=== PATIENT | male | born 1980 | race Caucasian/White ===

== ENCOUNTER → 2016-07-16 | Outpatient (CLI) | payer BC ==
[~2016-07-16] MED LIST: DOXY100T PO
[2016-07-16 09:02] LABS: BLOOD GAS BASE EXCESS 1.1 mmol/L (-2-2); BLOOD GAS HCO3 25 mmol/L (22-26); BLOOD GAS METHEMOGLOBIN 1.1 % (0-2); BLOOD GAS O2 HGB SATURATION 95 % (90-100); BLOOD GAS OXYGEN CONTENT 16.5 Vol % (12.0-20.0); BLOOD GAS PCO2 41 mmHg (38-42); BLOOD GAS PO2 95 mmHg (61-120); BLOOD GAS TOTAL HGB 12.2 G/DL (12.0-16.0); CRITICAL VALUE NO; DRAW SITE RT RADIAL; FIO2 21 %; NUMBER OF ARTERIAL PUNCTURES 1; STAT NO; TEMP CORR TO 98.6; ULNAR PULSE PRESENT
--- NOTE | 2016-07-19 11:48 | RSPPFT ---
DATE OF PROCEDURE: 07/16/16 COMMENTS: The forced vital capacity, FEV1, FEV1/FVC ratio and FEF 25-75 are all normal with no significant improvement after bronchodilator. The total lung capacity and residual volume are normal with a normal RV/TLC ratio. IMPRESSION: This is a normal pulmonary function study. The diffusion capacity is also normal.
== END ==
LOC: HRSP 07:46
PROVIDERS: ATTEND Family Medicine
DX: R06.02 Shortness of breath (principal)
CPT/HCPCS: 36600; 82805; 94060; 94726; 94729

== ENCOUNTER 2017-09-22 12:08 | Emergency (ER) | payer BC ==
[~2017-09-22] VITALS: Ht 180.3 cm; Wt 96.0 kg
[2017-09-22 12:14] VITALS: BP 155/84; PULSE 102; RESP 26; TEMP 97.8; O2SAT 97
[2017-09-22] MEDS ORDERED: SODIUM CHLORIDE 0.9% FLUSH 10 ML FLUSH IV FLUSH PRN (12:30)
[2017-09-22] MEDS ORDERED: SODIUM CHLOR 0.9% 1000 ML INJ 1,000 ML IV ONE (12:30)
[2017-09-22 12:44] LABS: AUTOMATED NEUTROPHIL # 5.4 TH/MM3 (1.8-7.7); BASOPHIL # 0.1 TH/MM3 (0-0.2); EOSINOPHIL # 0.3 TH/MM3 (0-0.4); EOSINOPHIL % 4.3 % (0.0-4.0); HEMATOCRIT 34.6 % (39.0-51.0); HEMOGLOBIN 10.8 GM/DL (13.0-17.0); LYMPH % 19.5 % (9.0-44.0); LYMPHOCYTE # 1.6 TH/MM3 (1.0-4.8); MEAN CORPUSCULAR HGB CONC 31.1 % (32.0-36.0); MEAN PLATELET VOLUME 8.6 FL (7.0-11.0); MONO % 8.6 % (0.0-8.0); MONOCYTE # 0.7 TH/MM3 (0-0.9); NEUT % 66.6 % (16.0-70.0); PLATELET COUNT 393 TH/MM3 (150-450); RED BLOOD COUNT 5.67 MIL/MM3 (4.50-5.90); RED CELL DISTRIBUTION WIDTH 19.8 % (11.6-17.2); WHITE BLOOD COUNT 8.1 TH/MM3 (4.0-11.0)
[2017-09-22 13:01] LABS: ALBUMIN 4.1 GM/DL (3.4-5.0); ALT (GPT) 43 U/L (12-78); AST (GOT) 27 U/L (15-37); BICARBONATE 27.6 MEQ/L (21.0-32.0); BLOOD UREA NITROGEN 16 MG/DL (7-18); CALCIUM 8.2 MG/DL (8.5-10.1); CHLORIDE 102 MEQ/L (98-107); CREATININE 1.57 MG/DL (0.60-1.30); GLOMERULAR FILTRATION RATE 50 ML/MIN (>89); GLUCOSE,RANDOM 183 MG/DL (74-106); MAGNESIUM 2.5 MG/DL (1.5-2.5); SODIUM (NA) 138 MEQ/L (136-145)
[2017-09-22 13:02] LABS: ALKALINE PHOSPHATASE 42 U/L (45-117); TOTAL BILIRUBIN ADULT 0.4 MG/DL (0.2-1.0); TOTAL PROTEIN 7.4 GM/DL (6.4-8.2)
--- NOTE | 2017-09-22 13:46 | PD ---
HPI Chief Complaint: Altered Mental Status Time Seen by Provider: 12:14 Travel History International Travel<30 days: No Contact w/Intl Traveler<30days: No Traveled to known affect area: No History of Present Illness HPI 37-year-old male that presents to the ED for evaluation of altered mental status and possible overdose. Patient is not a good historian and would not really tell me what he took but per patient he was doing "something I should not have done". Per report that was given by ambulance and patient he was in his car getting a drink and she took a "white powder "and apparently patient became unresponsive and somebody called the ambulance who evaluated him and had to break the window to get him out. Patient was given Narcan by ambulance with improvement of consciousness. Unclear as to how long the patient was out and who called the ambulance. Unclear if patient had the car on or not. He states that this was not a suicidal attempt and he does not feel homicidal suicidal. Per patient he did this recreationally. He denies this ever happened to him before. Per patient he did confess that he used heroin to nurse. Denies any chest pain or shortness of breath. No fevers chills or sweats. Patient denies injecting. Patient is noted. No other medical issues at this time. PFSH Past Medical History Hx Anticoagulant Therapy: No Cardiovascular Problems: Yes (HTN ) Diabetes: No Diminished Hearing: No Hypertension: Yes Musculoskeletal: Yes (Herniated discs in neck/back ) Immunizations Current: No Tetanus Vaccination: Unknown Influenza Vaccination: No Past Surgical History Surgical History: No Previous Surgery Social History Alcohol Use: Yes (Socc) Tobacco Use: Yes (1/2 PPD) Substance Use: Yes (COCAINE , HEROIN) Allergies-Medications (Allergen,Severity, Reaction): Coded Allergies: No Known Allergies (Unverified Adverse Reaction, Unknown, 09/22/17) Reported Meds & Prescriptions Reported Meds & Active Scripts Active Bactrim DS (Sulfamethoxazole-Trimethoprim) 800-160 Mg Tab 1 Tab PO BID 7 Days Review of Systems Except as stated in HPI: all other systems reviewed are Neg Physical Exam Narrative GENERAL: SKIN: Warm and dry. HEAD: Atraumatic. Normocephalic. EYES: Pupils equal and round. No scleral icterus. No injection or drainage. ENT: No nasal bleeding or discharge. Mucous membranes pink and moist. Tongue is midline. No uvula deviation. NECK: Trachea midline. No JVD. CARDIOVASCULAR: Regular rate and rhythm. No murmurs, S3, S4. RESPIRATORY: No accessory muscle use. Clear to auscultation. Breath sounds equal bilaterally. GASTROINTESTINAL: Abdomen soft, non-tender, nondistended. Hepatic and splenic margins not palpable. MUSCULOSKELETAL: Extremities without clubbing, cyanosis, or edema. No obvious deformities. Full range of motion of the upper and lower extremities bilaterally. 2+ pulses bilaterally. NEUROLOGICAL: Awake and alert. No obvious cranial nerve deficits. Motor grossly within normal limits. Five out of 5 muscle strength in the arms and legs. Normal speech. PSYCHIATRIC: Appropriate mood and affect; insight and judgment normal. Data Data Last Documented VS Vital Signs Date Time Temp Pulse Resp B/P (MAP) Pulse Ox O2 Delivery O2 Flow Rate FiO2 09/22/17 12:25 95 Room Air 09/22/17 12:14 97.8 102 26 155/84 (107) Orders Orders Complete Blood Count With Diff (09/22/17 12:19) Comprehensive Metabolic Panel (09/22/17 12:19) Urinalysis - C+S If Indicated (09/22/17 12:19) Magnesium (Mg) (09/22/17 12:19) Iv Access Insert/Monitor (09/22/17 12:19) Ecg Monitoring (09/22/17 12:19) Oximetry (09/22/17 12:19) Sodium Chloride 0.9% Flush (Ns Flush) (09/22/17 12:30) Alcohol (Ethanol) (09/22/17 12:19) Drug Screen, Random Urine (09/22/17 12:19) Sodium Chlor 0.9% 1000 Ml Inj (Ns 1000 M (09/22/17 12:30) Electrocardiogram (09/22/17 ) Urine Culture (09/22/17 14:15) Ed Discharge Order (09/22/17 15:13) Labs Laboratory Tests Test 09/22/17 12:30 09/22/17 14:15 White Blood Count 8.1 TH/MM3 Red Blood Count 5.67 MIL/MM3 Hemoglobin 10.8 GM/DL Hematocrit 34.6 % Mean Corpuscular Volume 61.0 FL Mean Corpuscular Hemoglobin 19.0 PG Mean Corpuscular Hemoglobin Concent 31.1 % Red Cell Distribution Width 19.8 % Platelet Count 393 TH/MM3 Mean Platelet Volume 8.6 FL Neutrophils (%) (Auto) 66.6 % Lymphocytes (%) (Auto) 19.5 % Monocytes (%) (Auto) 8.6 % Eosinophils (%) (Auto) 4.3 % Basophils (%) (Auto) 1.0 % Neutrophils # (Auto) 5.4 TH/MM3 Lymphocytes # (Auto) 1.6 TH/MM3 Monocytes # (Auto) 0.7 TH/MM3 Eosinophils # (Auto) 0.3 TH/MM3 Basophils # (Auto) 0.1 TH/MM3 CBC Comment DIFF FINAL Differential Comment Blood Urea Nitrogen 16 MG/DL Creatinine 1.57 MG/DL Random Glucose 183 MG/DL Total Protein 7.4 GM/DL Albumin 4.1 GM/DL Calcium Level 8.2 MG/DL Magnesium Level 2.5 MG/DL Alkaline Phosphatase 42 U/L Aspartate Amino Transf (AST/SGOT) 27 U/L Alanine Aminotransferase (ALT/SGPT) 43 U/L Total Bilirubin 0.4 MG/DL Sodium Level 138 MEQ/L Potassium Level 3.9 MEQ/L Chloride Level 102 MEQ/L Carbon Dioxide Level 27.6 MEQ/L Anion Gap 8 MEQ/L Estimat Glomerular Filtration Rate 50 ML/MIN Ethyl Alcohol Level LESS THAN 3 MG/DL Urine Color YELLOW Urine Turbidity HAZY Urine pH 6.5 Urine Specific Imbler 1.020 Urine Protein 100 mg/dL Urine Glucose (UA) 70 mg/dL Urine Ketones NEG mg/dL Urine Occult Blood SMALL Urine Nitrite NEG Urine Bilirubin NEG Urine Urobilinogen LESS THAN 2.0 MG/DL Urine Leukocyte Esterase NEG Urine RBC 4 /hpf Urine WBC 12 /hpf Urine Squamous Epithelial Cells 1 /hpf Urine Amorphous Sediment RARE Urine Bacteria RARE /hpf Urine Mucus FEW /lpf Microscopic Urinalysis Comment CULTURE INDICATED Urine Opiates Screen NEG Urine Barbiturates Screen NEG Urine Amphetamines Screen NEG Urine Benzodiazepines Screen NEG Urine Cocaine Screen POS Urine Cannabinoids Screen NEG MDM Medical Decision Making Medical Screen Exam Complete: Yes Emergency Medical Condition: Yes Medical Record Reviewed: Yes Interpretation(s) CBC & BMP Diagram 09/22/17 12:30 Total Protein 7.4, Albumin 4.1, Calcium Level 8.2 L, Magnesium Level 2.5, Alkaline Phosphatase 42 L, Aspartate Amino Transf (AST/SGOT) 27, Alanine Aminotransferase (ALT/SGPT) 43, Total Bilirubin 0.4 UA shows possible UTI Differential Diagnosis Opiate overdose versus drug overdose versus altered mental status versus dehydration versus normal exam Narrative Course 37-year-old male who presents to the ED for evaluation of overdose. Patient was properly examined and was found to have signs and symptoms consistent with appears to be likely heroin overdose. Patient had improvement of symptoms with Narcan. Back to baseline now. Labs were ordered. Patient will be observed for a period of 2-3 hours. Patient will be discharged back home. Patient was told to follow with detox facility for help. Patient was given information for this. Follow with PCP. See ED if worsening symptoms. Diagnosis Primary Impression: Opiate overdose Qualified Codes: T40.601A - Poisoning by unspecified narcotics, accidental ( unintentional), initial encounter Additional Impression: UTI (urinary tract infection) Qualified Codes: N30.00 - Acute cystitis without hematuria [facility]errals: [facility] Patient Instructions: General Instructions Additional Instructions: Follow-up with [facility] for help with substance abuse if wanted. Drink plenty of fluids. F/u with PCP. See ED if worst. Med/Other Pt SpecificInfo: No Change to Meds Scripts Sulfamethoxazole-Trimethoprim (Bactrim DS) 800-160 Mg Tab 1 TAB PO BID for Infection for 7 Days, #14 TAB 0 Refills Prov: Katharine Garcia MD 09/22/17 Disposition: 01 DISCHARGE HOME Condition: Stable Mega Toscano September 22, 2017 13:46
--- NOTE | 2017-09-22 14:08 | PD ---
Data Data Last Documented VS Vital Signs Date Time Temp Pulse Resp B/P (MAP) Pulse Ox O2 Delivery O2 Flow Rate FiO2 09/22/17 12:25 95 Room Air 09/22/17 12:14 97.8 102 26 155/84 (107) Orders Orders Complete Blood Count With Diff (09/22/17 12:19) Comprehensive Metabolic Panel (09/22/17 12:19) Urinalysis - C+S If Indicated (09/22/17 12:19) Magnesium (Mg) (09/22/17 12:19) Iv Access Insert/Monitor (09/22/17 12:19) Ecg Monitoring (09/22/17 12:19) Oximetry (09/22/17 12:19) Sodium Chloride 0.9% Flush (Ns Flush) (09/22/17 12:30) Alcohol (Ethanol) (09/22/17 12:19) Drug Screen, Random Urine (09/22/17 12:19) Sodium Chlor 0.9% 1000 Ml Inj (Ns 1000 M (09/22/17 12:30) Labs Laboratory Tests Test 09/22/17 12:30 White Blood Count 8.1 TH/MM3 Red Blood Count 5.67 MIL/MM3 Hemoglobin 10.8 GM/DL Hematocrit 34.6 % Mean Corpuscular Volume 61.0 FL Mean Corpuscular Hemoglobin 19.0 PG Mean Corpuscular Hemoglobin Concent 31.1 % Red Cell Distribution Width 19.8 % Platelet Count 393 TH/MM3 Mean Platelet Volume 8.6 FL Neutrophils (%) (Auto) 66.6 % Lymphocytes (%) (Auto) 19.5 % Monocytes (%) (Auto) 8.6 % Eosinophils (%) (Auto) 4.3 % Basophils (%) (Auto) 1.0 % Neutrophils # (Auto) 5.4 TH/MM3 Lymphocytes # (Auto) 1.6 TH/MM3 Monocytes # (Auto) 0.7 TH/MM3 Eosinophils # (Auto) 0.3 TH/MM3 Basophils # (Auto) 0.1 TH/MM3 CBC Comment DIFF FINAL Differential Comment Blood Urea Nitrogen 16 MG/DL Creatinine 1.57 MG/DL Random Glucose 183 MG/DL Total Protein 7.4 GM/DL Albumin 4.1 GM/DL Calcium Level 8.2 MG/DL Magnesium Level 2.5 MG/DL Alkaline Phosphatase 42 U/L Aspartate Amino Transf (AST/SGOT) 27 U/L Alanine Aminotransferase (ALT/SGPT) 43 U/L Total Bilirubin 0.4 MG/DL Sodium Level 138 MEQ/L Potassium Level 3.9 MEQ/L Chloride Level 102 MEQ/L Carbon Dioxide Level 27.6 MEQ/L Anion Gap 8 MEQ/L Estimat Glomerular Filtration Rate 50 ML/MIN Ethyl Alcohol Level LESS THAN 3 MG/DL MDM Supervised Visit with [facility]: Yes Narrative Course The history, exam, and medical decision-making in the associated midlevel provider note were completed with my assistance. I reviewed and agree with the findings presented. I attest that I had a anoa-ge-sosy encounter with the patient on the same day, and personally performed and documented my assessment and findings in the medical record. *My assessment and Findings: This is a 37-year-old male who presents to the emergency department having been found unresponsive in his car. He acknowledged to the nursing staff that he used heroin. EVAC administered Narcan and the patient awakened. Labs are reassuring. Patient was observed for 2 hours and had no recurrent symptoms. I think he is safe for discharge. Diagnosis Primary Impression: Opiate overdose Qualified Codes: T40.601A - Poisoning by unspecified narcotics, accidental ( unintentional), initial encounter Referrals: [facility] Patient Instructions: General Instructions Additional Instruction: Follow-up with [facility] for help with substance abuse if wanted. Drink plenty of fluids. F/u with PCP. See ED if worst. Scripts No Active Prescriptions or Reported Meds Disposition: 01 DISCHARGE HOME Condition: Stable Katharine Garcia MD September 22, 2017 14:08
[2017-09-22 14:46] LABS: AMORPHOUS SEDIMENT, URINE RARE; BACTERIA, URINE RARE /hpf; BILIRUBIN, URINE NEG (NEG); BLOOD, URINE SMALL (NEG); GLUCOSE,URINE 70 mg/dL (NEG); KETONE, URINE NEG (NEG); MUCUS URINE FEW /lpf (OCC); NITRITE,URINE NEG (NEG); PH, URINE 6.5 (5.0-8.5); SQUAMOUS EPITHELIAL CELL URINE 1 /hpf (0-5); URINE COLOR YELLOW (YELLW/STRAW); URINE LEUKOCYTE ESTERASE NEG (NEG)
[2017-09-22] MEDS ORDERED: BACT800T5 PO (15:14)
--- NOTE | 2017-09-23 19:17 | EKG ---
Date Performed: 09/22/2017 Time Performed: 12:17:33 PTAGE: 37 years EKG: SINUS TACHYCARDIA NONSPECIFIC T-WAVE ABNORMALITY ABNORMAL RHYTHM ECG Since the PREVIOUS TRACING , no significant change noted PREVIOUS TRACIN07/16/2012 08.52 DOCTOR: Opal Billings Interpretating Date/Time 09/23/2017 16:41:05
== END 2017-09-22 15:40 | disposition home or self-care (01) ==
LOC: NEPC 12:08
DX: T40.601A Poisoning by unspecified narcotics, accidental (unintentional), initial encounter (principal); N30.00 Acute cystitis without hematuria; F17.200 Nicotine dependence, unspecified, uncomplicated; R00.0 Tachycardia, unspecified
CPT/HCPCS: 80053; 80307; 81001; 83735; 85025; 87086; 93005; 96360; 99284; J7030

== ENCOUNTER 2017-10-23 12:29 | Emergency (ER) | payer BC ==
[~2017-10-23 12:29] MED LIST changes: +BACT800T5 PO; -DOXY100T PO
--- NOTE | 2017-10-23 13:06 | PD ---
HPI Chief Complaint: Code Blue Time Seen by Provider: 12:50 Travel History International Travel<30 days: No Contact w/Intl Traveler<30days: No Traveled to known affect area: No History of Present Illness HPI 911 was called for unresponsive call, upon arrival EMS found young male down pulseless and apneic and no CPR ongoing at the time of arrival. Unknown downtime. EOA place, CPR started 5 rounds of epinephrine Narcan 2 mg and 100 of bicarb were given by EMS prior to arrival to the emergency department a conducted CPR for approximately 25 minutes. No further history is available, due to the extremis of the case, the only information we could get was from the who arrived much later, and who stated that he was drinking and snorting some orange pills with friends, she can only guess that they were opiates because that is what he has used in the past. PFSH Past Medical History Hx Anticoagulant Therapy: No Cardiovascular Problems: Yes (HTN ) Diabetes: No Diminished Hearing: No Hypertension: Yes Musculoskeletal: Yes (Herniated discs in neck/back ) Immunizations Current: No Social History Alcohol Use: Yes (Socc) Tobacco Use: Yes (1/2 PPD) Substance Use: Yes (COCAINE , HEROIN) Allergies-Medications (Allergen,Severity, Reaction): Coded Allergies: No Known Allergies (Unverified Adverse Reaction, Unknown, 09/22/17) Reported Meds & Prescriptions Reported Meds & Active Scripts Active Bactrim DS (Sulfamethoxazole-Trimethoprim) 800-160 Mg Tab 1 Tab PO BID 7 Days Review of Systems ROS Limitations: Clinical Condition Physical Exam Exam Limitations: Clinical Condition Narrative GENERAL: SKIN: Pale and cool to touch HEAD: Atraumatic. Normocephalic. EYES: Pupils equal and round. No scleral icterus. No injection or drainage. ENT: No nasal bleeding or discharge. NECK: Trachea midline. No JVD. EOA in place CARDIOVASCULAR: Pulseless RESPIRATORY: Apneic GASTROINTESTINAL: Obese, distended. MUSCULOSKELETAL: Extremities without clubbing, cyanosis, or edema. No obvious deformities. NEUROLOGICAL: [id number] [facility] Medical Decision Making Medical Screen Exam Complete: Yes Emergency Medical Condition: Yes Medical Record Reviewed: Yes Narrative Course Attempted intubation 1 unsuccessful continued BVM, for the remainder of the code. Continuous CPR ongoing with adequate depth and rate, provided ACLS measurements and drugs including epinephrine atropine bicarb Narcan and D50.... None of these measurements were successful as the patient did not ever regain ROSC Total code time 25 minutes by EMS prior to arrival and another 24 minutes coded time in emergency department total 49 minutes Spent time discussing with family in particular Code called at 1242 Critical Care Narrative CRITICAL CARE NOTE: With evaluation of the patient, labs, EKG, receipt of radiologic studies, administration of medications, reevaluation the patient and discussion of the patient with the admitting physicians, the total critical care time was [25] minutes. Time to perform other separately billable procedures was not included in the critical care time. Procedures Procedure Narrative After the risks and benefits were discussed the following procedure was performed: INTUBATION: The patient was put in optimal position for the procedure. Rapid sequence intubation was initiated by me using [not applicable-] milligrams of etomidate IV and [not applicable-] milligrams of [-not applicable] IV. The patient was intubated with a [8] cuffed endotracheal tube. Tube placement was confirmed by visualization of the tube and balloon passing through the cords, capnometry and subsequent chest x-ray. Breath sounds were equal and well aerated bilaterally postintubation. No breath sounds over stomach. 20 cm at the lip However within 1 minute of continued chest compressions while attempting to secure the tube, there was abrupt movement, and it is believed that at this time the ET tube was dislodged. Diagnosis Primary Impression: Cardiopulmonary arrest Disposition: 20 Condition: Giovanni Anderson MD Oct 23, 2017 13:06
== END 2017-10-23 15:00 | disposition expired ==
LOC: PHED 12:29
DX: I10 Essential (primary) hypertension (principal); F14.90 Cocaine use, unspecified, uncomplicated; F11.90 Opioid use, unspecified, uncomplicated; F17.200 Nicotine dependence, unspecified, uncomplicated
CPT/HCPCS: 31500; 92950